=== PATIENT | female | born 2000 | race Caucasian/White ===

== ENCOUNTER 2021-10-02 01:04 | Emergency (ER) | payer BC ==
[~2021-10-02] VITALS: Ht 160 cm; Wt 50.8 kg
--- NOTE | 2021-10-02 01:49 | NUR ---
BIBS FOR C/O N/V/D X 2 WEEKS. PT A/OX4. RESP EVEN AND NONLABOREDTOLERATING R/A WELL ITH NO SOB
[2021-10-02] MEDS ORDERED: MAG HYDROX/AL HYDROX/SIMETH 30 ML UDC ONE (02:10)
[2021-10-02] MEDS ORDERED: ONDANSETRON HCL/PF 4 MG/2 ML VIAL ONE (02:10)
[2021-10-02] MEDS ORDERED: LIDOCAINE VISCOUS 2% UD 15 ML UDC ONE (02:10)
--- NOTE | 2021-10-02 02:10 | NUR ---
[employer] ATTENDANT AT PT'S BEDSIDE
[2021-10-02] MEDS: IV NS 0.9% 1,000 ML BAG IV ONE (02:21)
[2021-10-02 02:27] LABS: BASOPHILS # (AUTO) 0.1 K/uL (0.0-0.2); BASOPHILS % (AUTO) 2.8 % (0.0-2.0); EOSINOPHILS % (AUTO) 1.2 % (0.0-6.0); HEMATOCRIT 38 % (33-45); LYMPHOCYTES # (AUTO) 1.3 K/uL (0.8-4.8); LYMPHOCYTES % (AUTO) 27.6 % (20.0-44.0); MEAN CORPUSCULAR HGB CONC 34 g/dl (31.0-36.0); MEAN CORPUSCULAR VOLUME 97 fL (82-100); MONOCYTES # (AUTO) 0.4 K/uL (0.1-1.30); MONOCYTES % (AUTO) 8.8 % (2.0-12.0); NEUTROPHILS # (AUTO) 2.9 K/uL (1.8-8.9); NEUTROPHILS % (AUTO) 59.6 % (43.0-81.0); PLATELET COUNT (AUTO) 260 K/uL (150-450); RED BLOOD CELL COUNT(AUTO) 3.96 MIL/uL (4.0-5.2); WHITE BLOOD COUNT (AUTO) 4.8 K/uL (4.3-11.0)
[2021-10-02] MEDS: ONDANSETRON HCL/PF 4 MG/2 ML VIAL IVP ONE (02:28)
[2021-10-02] MEDS: MAG HYDROX/AL HYDROX/SIMETH 30 ML UDC PO ONE (02:28)
[2021-10-02] MEDS: LIDOCAINE VISCOUS 2% UD 15 ML UDC MM ONE (02:28)
[2021-10-02 02:53] LABS: BILIRUBIN,DIRECT 0.2 mg/dL (0.0-0.2); BILIRUBIN,TOTAL 0.4 mg/dL (0.2-1.0); CALCIUM, SERUM 9.3 mg/dL (8.5-10.1); CREATININE 0.5 mg/dL (0.6-1.3); POTASSIUM 3.6 mmol/L (3.5-5.1); TOTAL PROTEIN, SERUM 9.2 g/dL (6.4-8.2)
[2021-10-02] MEDS ORDERED: CIPR500T5 PO (03:43)
[2021-10-02] MEDS ORDERED: ONDA4TAB11 PO (03:43)
[2021-10-02] MEDS ORDERED: LOPE2CAP40 PO (03:43)
--- NOTE | 2021-10-02 03:54 | NUR ---
Patient discharged to home in stable condition. Written and verbal after care instructions given. Patient verbalizes understanding of instruction.IV removed. Catheter intact and site benign. Pressure and 4x4 applied to site. No bleeding noted.
[2021-10-02 03:55] VITALS: BP 136/89
== END 2021-10-02 03:56 | disposition home or self-care (01) ==
LOC: ER 01:09
DX: K52.9 Noninfective gastroenteritis and colitis, unspecified (principal); R11.2 Nausea with vomiting, unspecified; Z79.899 Other long term (current) drug therapy
CPT/HCPCS: 36415; 80048; 80076; 83690; 84703; 85025; 96361; 96374; 99283; J2405; J7030